=== PATIENT | male | born 1975 | race Caucasian/White ===

== ENCOUNTER 2018-08-07 00:07 | Emergency (ER) | payer SELFPAY ==
[~2018-08-07] VITALS: Ht 170.2 cm; Wt 81.6 kg
[2018-08-07 00:15] VITALS: Ht 170.2 cm; Wt 81.6 kg
[2018-08-07 01:27] LABS: CALCIUM 8.6 mg/dL (8.5-10.1); CARBON DIOXIDE 32.3 mmol/L (21-32); CHLORIDE SERUM 100 mmol/L (98-107); CREATININE SERUM 1.2 mg/dL (0.7-1.3); GFR1 > 60 mL/min; GLUCOSE SERUM 104 mg/dL (74-106); POTASSIUM SERUM 3.9 mmol/L (3.5-5.1); SODIUM SERUM 137 mmol/L (136-145)
[2018-08-07 01:33] LABS: ALBUMIN 3.8 g/dL (3.4-5.0); ALKALINE PHOSPHATASE 57 U/L (46-116); ALT/SGPT 122 U/L (16-63); AST/SGOT 53 U/L (15-37); BILIRUBIN TOTAL 0.35 mg/dL (0.20-1.00); LIPASE 198 IU/L (73-393); TOTAL PROTEIN, SERUM 7.1 g/dL (6.4-8.2)
[2018-08-07 01:35] LABS: BASOPHIL % 0.5 % (0-2); PLATELET COUNT 284 x10^3mcL (130-400); RED CELL DISTRIBUTION WIDTH 13.5 % (11.5-14.5)
[2018-08-07 03:20] VITALS: BP 120/79
== END 2018-08-07 03:20 | disposition home or self-care (01) ==
LOC: ED 00:07
PROVIDERS: Emergency Medicine
DX: R10.13 Epigastric pain (principal); R11.2 Nausea with vomiting, unspecified; G89.29 Other chronic pain; M54.9 Dorsalgia, unspecified; Z90.89 Acquired absence of other organs
CPT/HCPCS: J1885; J2270; J2405; J7030

== ENCOUNTER 2018-11-03 08:16 | Emergency (ER) | payer MEDICAID ==
[~2018-11-03] VITALS: Ht 165.1 cm; Wt 88.6 kg
[2018-11-03 08:20] VITALS: Ht 165.1 cm; Wt 88.6 kg
[2018-11-03 09:17] LABS: BASOPHIL % 0.4 % (0-2); PLATELET COUNT 387 x10^3mcL (130-400)
[2018-11-03 09:34] LABS: CALCIUM 8.9 mg/dL (8.5-10.1); CARBON DIOXIDE 30.8 mmol/L (21-32); CHLORIDE SERUM 102 mmol/L (98-107); CREATININE SERUM 1.1 mg/dL (0.7-1.3); GFR1 > 60 mL/min; GLUCOSE SERUM 112 mg/dL (74-106); POTASSIUM SERUM 4.5 mmol/L (3.5-5.1); SODIUM SERUM 140 mmol/L (136-145)
[2018-11-03 09:38] VITALS: BP 121/81
[2018-11-03 09:40] LABS: ALBUMIN 3.5 g/dL (3.4-5.0); ALKALINE PHOSPHATASE 66 U/L (46-116); ALT/SGPT 20 U/L (16-63); AMYLASE 59 U/L (25-115); AST/SGOT 13 U/L (15-37); BILIRUBIN TOTAL 0.2 mg/dL (0.20-1.00); LIPASE 185 IU/L (73-393); TOTAL PROTEIN, SERUM 7.9 g/dL (6.4-8.2)
== END 2018-11-03 10:26 | disposition home or self-care (01) ==
LOC: ED 08:16
PROVIDERS: Emergency Medicine
DX: K80.50 Calculus of bile duct without cholangitis or cholecystitis without obstruction (principal); I10 Essential (primary) hypertension; F20.9 Schizophrenia, unspecified; F41.9 Anxiety disorder, unspecified; Z90.89 Acquired absence of other organs
CPT/HCPCS: 36415; J1885; Q0092

== ENCOUNTER 2018-11-10 01:08 | Inpatient (IN) | payer MEDICAID ==
[~2018-11-10] VITALS: Ht 162.6 cm; Wt 88.5 kg
[2018-11-10 01:14] VITALS: Ht 162.6 cm; Wt 88.5 kg
--- NOTE | 2018-11-10 01:35 | NUR ---
PT. C/O OF RUQ ABD PAIN OFF AND ON FOR A FEW WKS THAT HAS WORSENED SINCE LAST NIGHT. ALSO REPROTS N/V. 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 PT. AAOX4, TALKING AND RESPONDING APPROPRIATLEY, BREATHING E/U. DR. HALL AT BEDSIDE FOR MSE.
[2018-11-10 01:53] LABS: BASOPHIL % 0.5 % (0-2); RED CELL DISTRIBUTION WIDTH 12.2 % (11.5-14.5)
[2018-11-10 01:54] LABS: PLATELET COUNT 415 x10^3mcL (130-400)
[2018-11-10 02:06] LABS: CALCIUM 8.6 mg/dL (8.5-10.1); CHLORIDE SERUM 103 mmol/L (98-107); CREATININE SERUM 1.1 mg/dL (0.7-1.3); GFR1 > 60 mL/min; GLUCOSE SERUM 134 mg/dL (74-106); POTASSIUM SERUM 3.7 mmol/L (3.5-5.1); SODIUM SERUM 142 mmol/L (136-145)
--- NOTE | 2018-11-10 02:12 | NUR ---
PT. REPORTS PAIN IS NOW 7/10 AFTER MORPHINE. WILL CONTINUE TO MONITOR.
[2018-11-10 02:14] LABS: ALBUMIN 3.5 g/dL (3.4-5.0); ALKALINE PHOSPHATASE 131 U/L (46-116); ALT/SGPT 99 U/L (16-63); AST/SGOT 148 U/L (15-37); BILIRUBIN TOTAL 0.5 mg/dL (0.20-1.00); LIPASE 172 IU/L (73-393); TOTAL PROTEIN, SERUM 7.6 g/dL (6.4-8.2)
[2018-11-10] MEDS ORDERED: ALPRAZOLAM2 MG PO (03:19)
[2018-11-10] MEDS ORDERED: GOOD NEIGHBOR P20 M2 (03:19)
[2018-11-10] MEDS ORDERED: NEURONTIN100 MG PO (03:19)
[2018-11-10 03:31] LABS: microscopic required? NO
[2018-11-10 03:32] LABS: CHOLESTEROL/HDL RATIO 5.4
[2018-11-10 03:39] LABS: UA SPECIFIC GRAVITY 1.015 (1.005-1.035); urine erythrocyte NEGATIVE (NEGATIVE)
--- NOTE | 2018-11-10 03:44 | NUR ---
REPORT CALLED TO SADA RODRIGUEZ
--- NOTE | 2018-11-10 03:47 | NUR ---
PT TRANSFERED TO [facility] [place] AT THIS TIME IN NAD. BREATHING EVEN AND UNLABORED. PT A&OX4, SPEAKING FULL CLEAR SENTENCES. PT TRANSFERED VIA [facility] ACCOMPANIED BY SAMANTHA TILLMAN.
[2018-11-10 03:52] VITALS: BP 137/83
[2018-11-10 04:05] LABS: FREE T4 1.33 ng/dL (0.76-1.46); FREE THYROXINE INDEX 4.3 ug/dL (1.4-4.5); T4(THYROXINE) 12.4 ug/dL (4.7-13.3)
[2018-11-10 04:28] LABS: AMPHETAMINE QUAL UR NONE DETECTED (See below)
--- NOTE | 2018-11-10 04:40 | NUR ---
Admitted this 43y/o male from ED dx of cholelithiasis. Alert and oriented. Ambulatory. No respiratory distress noted on room air. Denies n/v. Medicated as ordered for c/o abd'l. pain level 7/10. MOrphine 2mg IV given. Admission assessment done. NPO except meds. Call light within reach.
[2018-11-10 05:58] LABS: BASOPHIL % 0.3 % (0-2); PLATELET COUNT 365 x10^3mcL (130-400); RED CELL DISTRIBUTION WIDTH 13.1 % (11.5-14.5)
[2018-11-10 06:13] LABS: CALCIUM 8.5 mg/dL (8.5-10.1); CARBON DIOXIDE 32.7 mmol/L (21-32); CHLORIDE SERUM 105 mmol/L (98-107); CREATININE SERUM 1.1 mg/dL (0.7-1.3); GFR1 > 60 mL/min; GLUCOSE SERUM 105 mg/dL (74-106); MAGNESIUM 1.8 mg/dL (1.8-2.4); PHOSPHOROUS 3.2 mg/dL (2.5-4.9); POTASSIUM SERUM 3.9 mmol/L (3.5-5.1); SODIUM SERUM 144 mmol/L (136-145)
--- NOTE | 2018-11-10 07:30 | NUR ---
RECEIVED PT. IN BED A/A/O X4. NO SOB, NO N/V NOTED. PT. C/O ABD. PAIN. NS RUNNING AT 100 CC/HR VIA IV SITE AT R AC. SCD TO BLE MAINTAINED. BED IN LOW POS., CALL LIGHT WITHIN REACH. SIDE RAILS UP X3.
--- NOTE | 2018-11-10 08:40 | NUR ---
VIOLET WIPE GIVEN TO PREPARE FOR SURGERY.
[2018-11-10 09:02] VITALS: BP 133/90
--- NOTE | 2018-11-10 10:05 | NUR ---
PT. IS BEING TAKEN TO O.R. FOR SURGERY AT THIS TIME.
[2018-11-10 13:15] LABS: T3 TOTAL 0.69 ng/mL
--- NOTE | 2018-11-10 13:38 | NUR ---
RECEIVED PT. BACK FROM RECOVERY DEPT. (S/P ZENAIDA. JORDYN. TODAY). PT. A/A/O X3. NO SOB, NO N/V NOTED. ABD. INCISIONS COVERED WITH BANDAGES X5 CDI. B/P= 121/79, P= 77, R.R.= 16, T= 97.5, O2 SAT.= 95% (WITH O2 AT 2L NC). WILL CONTINUE TO MONITOR.
--- NOTE | 2018-11-10 16:51 | NUR ---
REMAINS IN STABLE CONDITION AT THIS TIME. WILL CONTINUE TO MONITOR.
[2018-11-10 16:59] VITALS: BP 133/90
[2018-11-10 18:05] VITALS: BP 111/68
--- NOTE | 2018-11-10 19:26 | NUR ---
RECEIVED PT FROM DAY SHIFT RN. PT RESTING IN BED. NO SIGNS OF CHEST PAIN OR SHORTNESS OF BREATH AT THIS TIME. PT HAS A RAC IV THAT IS CLEAN DRY AND INTACT AT THIS TIME. PT IS CURRENTLY ON ROOM AIR. NO USE OF ACCESSORY MUSCLES OR LABORED BREATHING N0TED. SAFETY MEASURES ARE IN PLACE CALL LIGHT IS WITHIN REACH. WILL CONTINUE TO MONITOR.
--- NOTE | 2018-11-10 19:26 | NUR ---
RECEIVED PT FROM DAY SHIFT RN. PT IS RESTING IN BED AA&O X4 AND ABLE TO FOLLOW COMMANDS. PT DENIES CHEST PAIN OR SHORTNESS OF BREATH. PT IS ON 2L NASAL CANULA. RAC IV IS CLEAN DRY AND INTACT. SAFETY MEASURES ARE IN PLACE. CALL LIGHT IS WITHIN REACH. PT DENIES PAIN AT THIS TIME. WILL CONTINUE TO MONITOR.
--- NOTE | 2018-11-10 21:12 | NUR ---
SPO2: 90% RA. PLACED PT ON 2L NC. SPO2:95%. NURSE NOTIFIED. WILL CONT.TO MONITOR
--- NOTE | 2018-11-10 22:07 | NUR ---
NORCO GIVEN FOR PAIN 8/10 IN ABDOMEN.
[2018-11-10 22:34] VITALS: BP 112/66
[2018-11-11 05:35] VITALS: BP 114/74
[2018-11-11 06:49] LABS: CALCIUM 8.1 mg/dL (8.5-10.1); CARBON DIOXIDE 29.6 mmol/L (21-32); CHLORIDE SERUM 102 mmol/L (98-107); CREATININE SERUM 1.1 mg/dL (0.7-1.3); GFR1 > 60 mL/min; GLUCOSE SERUM 103 mg/dL (74-106); MAGNESIUM 1.5 mg/dL (1.8-2.4); PHOSPHOROUS 3.5 mg/dL (2.5-4.9); POTASSIUM SERUM 3.6 mmol/L (3.5-5.1); SODIUM SERUM 138 mmol/L (136-145)
[2018-11-11 07:12] LABS: BASOPHIL % 0.2 % (0-2); PLATELET COUNT 344 x10^3mcL (130-400); RED CELL DISTRIBUTION WIDTH 13.4 % (11.5-14.5)
--- NOTE | 2018-11-11 07:25 | NUR ---
RECEIVED PT. IN BED A/A/O X3. NO SOB, NO N/V NOTED. PT. DENIES ANY PAIN AT THIS TIME. NS RUNNING AT 80 CC/HR VIA IV SITE AT R AC. SCD TO BLE MAINTAINED. PT. STATED HAS BURPED BUT HAS NOT PASSED GAS YET. BED IN LOW POS., CALL LIGHT WITHIN REACH. SIDE RAILS UP X3.
[2018-11-11 10:08] VITALS: BP 115/72
[2018-11-11 18:16] VITALS: BP 115/74
--- NOTE | 2018-11-11 19:00 | NUR ---
PT. REMAINS IN STABLE CONDITION AT THIS TIME. PT. TOLERATED REG. DIET WELL. NO N/V NOTED.
--- NOTE | 2018-11-11 19:20 | NUR ---
RECEIVED PT FROM DAY SHIFT RN. PT IS AA&O X4 AND ABLE TO FOLLOW COMMANDS. PT DENIES CHEST PAIN OR SOB AT THIS TIME. RAC IV IS CLEAN DRY AND INTACT. SAFETY MEASURES ARE IN PLACE. CALL LIGHT IS WITHIN REACH. WILL CONTINUE TO MONITOR.
--- NOTE | 2018-11-11 20:36 | NUR ---
MORPHINE GIVEN FOR PAIN 10 IN THE ABDOMEN. WILL REASSSESS.
[2018-11-11 20:59] VITALS: BP 129/88
--- NOTE | 2018-11-12 00:31 | NUR ---
PT RESTING IN BED WITH EYES CLOSED. NO SIGNS OF DISTRESS OR FACIAL GRIMMACING.
--- NOTE | 2018-11-12 02:18 | NUR ---
TYLENOL GIVEN FOR HEADACHE. WILL REASSESS.
--- NOTE | 2018-11-12 05:29 | NUR ---
PT SLEPT IN INTERVALS THROUGHOUT THE NIGHT. PT RESTING IN BED. NO SYMPTOMS OF CHEST PAIN OR SHORTNESS OF BREATH UPON ASSESSMENT. IV IS CLEAN DRY AND INTACT. SAFETY MEASURES ARE IN PLACE. CALL LIGHT IS WITHIN REACH. WILL ENDORSE TO DAY SHIFT RN.
[2018-11-12 06:08] VITALS: BP 109/74
[2018-11-12 06:55] LABS: BASOPHIL % 0.4 % (0-2); PLATELET COUNT 349 x10^3mcL (130-400); RED CELL DISTRIBUTION WIDTH 13.7 % (11.5-14.5)
[2018-11-12 07:05] LABS: CALCIUM 8.4 mg/dL (8.5-10.1); CARBON DIOXIDE 30.4 mmol/L (21-32); CHLORIDE SERUM 101 mmol/L (98-107); GFR1 > 60 mL/min; GLUCOSE SERUM 110 mg/dL (74-106); POTASSIUM SERUM 3.6 mmol/L (3.5-5.1); SODIUM SERUM 138 mmol/L (136-145)
--- NOTE | 2018-11-12 07:40 | NUR ---
RECEIVED PT FROM MANAGER SHELL RN. Esperanza/TAMIE. MED SURG. RESPIRATIONS EQUAL AND UNLABORED ON 2L NC. DENIES SOB. ASKED PT IF WE CAN REMOVED NC PT STATES "I WOULD RATHER KEEP IT ON". IV TO RAC PATENT AND INFUSING. NO REDNESS OR SWELLING NOTED. DRESSING TO ABDOMEN X4 CDI. NO DRAINAGE NOTED. PT DENIES ANY PAIN AT THIS TIME. WILL CONTINUE TO MONITOR. CALL LIGHT IN REACH. BED IN LOWEST POSITION.
[2018-11-12 09:04] VITALS: BP 114/71
--- NOTE | 2018-11-12 10:24 | NUR ---
PT SITTING UP IN BED. RESPIRATIONS EQUAL AND UNLABORED ON 2L NC. NO ACUTE RESP DISTRESS NOTED. GIVEN PO MEDS. TOLERATED WELL. IV PATENT AND INFUSING. NO REDNESS OR SWELLING NOTED. PT C/O PAIN 02/20 TO OPERATIVE SITE. GIVEN MORPHINE IVP. TOLERATED WELL. WILL CONTINUE TO MONITOR. CALL LIGHT IN REACH. BED IN LOWEST POSITION.
[2018-11-12] MEDS ORDERED: IBUPROFEN400 MG PO (11:01)
[2018-11-12] MEDS ORDERED: AMOXICILLIN/CLA1 TA6 PO (11:08)
[2018-11-12 11:35] VITALS: BP 114/71
--- NOTE | 2018-11-12 14:32 | NUR ---
PT IN BED SLEEPING. RESPIRATIONS EQUAL AND UNLABORED ON RA. NO ACUTE RESP DISTRESS NOTED. PT TOLD DISCHARGE IS READY. PT STATES HIS FAMILY WILL BE HERE WITHIN 30 TO 40 MINUTES TO PICK HIM UP. PT WOULD LIKE TO GO OVER DISCHARGE INSTRUCTIONS WHEN FAMILY ARRIVES. GIVEN PO MEDS. TOLERATED WELL. EMPTIED 720 ML OF DARK YELLOW URINE FROM URINAL. WILL CONTINUE TO MONITOR. CALL LIGHT IN REACH. BED IN LOWEST POSITION.
[2018-11-12 16:37] VITALS: BP 113/77
--- NOTE | 2018-11-12 17:12 | NUR ---
PT GIVEN DISCHARGE INSTRUCTIONS. PT DRESSING CHANGED TO ABDOMEN X5. DRESSING HAD MINIMAL SANGINEOUS DRAINAGE ON EACH. PHOTOGRAPH TAKEN. PT INSTRUCTED TO CONTACT DR. MEJIA TO MAKE FOLLOW UP APPOINTMENT ON 11/16. PT INFORMED OF FOLLOW UP APPOINTMENT ON 12/03 AT [facility] AT 0930. PT VERBALIZED UNDERSTANDING. PT PROVIDED PRESCRIPTIONS FOR AMOXICILLIN AND IBUPROFEN FOR PAIN. PT ENCOURAGED TO COME TO ER IF ANY WORSENING SYMPTOMS SUCH SWELLING, DRAINAGE OR TEMPERATURE OCCUR. PT VERBALIZED UNDERSTANDING. ALL QUESTIONS AND CONCERNS ADDRESSED. IV TO RAC REMOVED CATHETER INTACT. NO REDNESS OR SWELLING NOTED. PT GETTING DRESSED. WILL CALL WHEN READY TO BE TAKEN DOWN.
== END 2018-11-12 17:53 | disposition home or self-care (01) | DRG 263 ==
LOC: ED 01:08 → MU 02:58
PROVIDERS: Emergency Medicine; Internal Medicine; Surgery; ADMIT General Practice
PROC: 0FT44ZZ Resection of Gallbladder, Percutaneous Endoscopic Approach (ICD-10-PCS; principal; 2018-11-10 10:00)
DX: K80.00 Calculus of gallbladder with acute cholecystitis without obstruction (principal); F20.9 Schizophrenia, unspecified; F31.9 Bipolar disorder, unspecified; K21.9 Gastro-esophageal reflux disease without esophagitis; R03.0 Elevated blood-pressure reading, without diagnosis of hypertension; F41.9 Anxiety disorder, unspecified; G47.00 Insomnia, unspecified; G40.909 Epilepsy, unspecified, not intractable, without status epilepticus; J61 Pneumoconiosis due to asbestos and other mineral fibers; R74.0 Nonspecific elevation of levels of transaminase and lactic acid dehydrogenase [LDH]; E78.5 Hyperlipidemia, unspecified; Z68.34 Body mass index [BMI] 34.0-34.9, adult
CPT/HCPCS: 84439; J0330; J0690; J1170; J2250; J2270; J2405; J2543; J2704; J2710; J3010; J3475; J3490; J7030; J7120; J7620

== ENCOUNTER 2019-01-21 19:48 | Emergency (ER) | payer MEDICAID ==
[~2019-01-21] VITALS: Ht 165.1 cm; Wt 88.5 kg
[~2019-01-21 19:48] MED LIST: ALPRAZOLAM2 MG PO; AMOXICILLIN/CLA1 TA6 PO; GOOD NEIGHBOR P20 M2; IBUPROFEN400 MG PO; NEURONTIN100 MG PO
[2019-01-21 19:56] VITALS: Ht 165.1 cm; Wt 88.5 kg
[2019-01-21 20:43] LABS: BASOPHIL % 0.3 % (0-2); PLATELET COUNT 261 x10^3mcL (130-400); RED CELL DISTRIBUTION WIDTH 13.3 % (11.5-14.5)
[2019-01-21 20:52] LABS: CALCIUM 9.7 mg/dL (8.5-10.1); CARBON DIOXIDE 27.3 mmol/L (21-32); CREATININE SERUM 1.4 mg/dL (0.7-1.3); POTASSIUM SERUM 4.2 mmol/L (3.5-5.1)
[2019-01-21 20:56] LABS: ALBUMIN 3.9 g/dL (3.4-5.0); BILIRUBIN TOTAL 0.36 mg/dL (0.20-1.00); TOTAL PROTEIN, SERUM 8.2 g/dL (6.4-8.2)
[2019-01-22 00:43] VITALS: BP 110/71
== END 2019-01-22 00:43 | disposition home or self-care (01) ==
LOC: ED 19:48
PROVIDERS: Emergency Medicine
DX: N13.2 Hydronephrosis with renal and ureteral calculous obstruction (principal); J45.909 Unspecified asthma, uncomplicated; I10 Essential (primary) hypertension; F31.9 Bipolar disorder, unspecified; Z90.89 Acquired absence of other organs; Z90.49 Acquired absence of other specified parts of digestive tract
CPT/HCPCS: J1885; J2270; J2405; J7030

== ENCOUNTER 2019-03-02 01:49 | Inpatient (IN) | payer MEDICAID ==
[~2019-03-02] VITALS: Ht 165.1 cm; Wt 90.0 kg
[2019-03-02 01:58] VITALS: Ht 165.1 cm; Wt 90.0 kg
--- NOTE | 2019-03-02 02:08 | NUR ---
DR MCKEON AT BEDSIDE PERFORMING MSE.
--- NOTE | 2019-03-02 02:14 | NUR ---
PT BIBA TO BED 5 VIA GURNEY. PER MEDIC PT FAMILY CALLED 911 AFTER PT VOICED SI AND HI. PT REPORTED TO FAMILY HE WANTED TO CALL POLICE AND TELL THEM KILLED PEOPLE "SO THEY CAN TAKE HIM OUT". PER MEDIC FAMILY STATED PT READS "[employer] SO HE CAN OUT SMART THE POLICE". PER MEDIC FAMILY STATED THEY TALKED PT OUT OF CALLING THE POLICE BUT PT BEGAN CUTTING HIMSELF WITH A KNIFE, AND STATED "I WANTED TO CUT MY WHOLE OPEN". ON ASSESSMENT PT IS AAOX4, RESPIRATIONS EVEN AND UNLABORED, PT SPEAKING IN SHORT SENTENCES SLURRED, SPEECH. PT IS CALM AND COPPERATIVE. PT REPORTS HE HASNT SLEPT IN 30 DAYS. PT STATES "I WANT TO END IT ALL AND STOP MY BRAIN FROM RUNNING ITS ON FIRE" WHEN ASKED OF HI PT STATES "I WANT TO END EVERYONE". PT REPORTS PAST SI ATTEMPTS. PT HAS MULTIPLE SUPERFICIAL LACERATIONS TO L FOREARM. PER MEDIC PT WAS SEEN IN EARLY FEBRUARY FOR SIMILAR SYMPTOMS BUT NOT PLACED ON A HOLD AND DISCHARGED IN A FEW HOURS. PT IS LAYING IN BED WITH EYE CLOSED, EASILY AROUSABLE AND ABLE TO ANSWER QUESTIONS. PT CHANGED INTO GOWN, BELONGINGS PLACED IN NURSING STATION. PT WITHIN VIEW OF NURSING STATION, SUICIDE PRECAUTIONS IN PLACE.
[2019-03-02 02:24] LABS: BASOPHIL % 0.3 % (0-2); PLATELET COUNT 263 x10^3mcL (130-400); RED CELL DISTRIBUTION WIDTH 14.1 % (11.5-14.5)
[2019-03-02 02:45] LABS: microscopic required? NO
[2019-03-02 02:58] LABS: CALCIUM 8.9 mg/dL (8.5-10.1); CARBON DIOXIDE 25.8 mmol/L (21-32); CHLORIDE SERUM 104 mmol/L (98-107); CREATININE SERUM 1.2 mg/dL (0.7-1.3); GFR1 > 60 mL/min; GLUCOSE SERUM 102 mg/dL (74-106); POTASSIUM SERUM 3.9 mmol/L (3.5-5.1); SODIUM SERUM 139 mmol/L (136-145)
[2019-03-02 03:02] LABS: ALBUMIN 3.7 g/dL (3.4-5.0); ALKALINE PHOSPHATASE 43 U/L (46-116); ALT/SGPT 17 U/L (16-63); AST/SGOT 5 U/L (15-37); TOTAL PROTEIN, SERUM 7.4 g/dL (6.4-8.2)
[2019-03-02 03:11] LABS: UA SPECIFIC GRAVITY <=1.005 (1.005-1.035)
[2019-03-02 03:12] LABS: urine erythrocyte NEGATIVE (NEGATIVE)
[2019-03-02 03:24] LABS: AMPHETAMINE QUAL UR NONE DETECTED (See below)
--- NOTE | 2019-03-02 03:53 | NUR ---
PT TAKEN TO USE THE BATHROOM, CHAPERONED BY JENNIFER MCKAY. PT HAS STEADY GAIT TO AND FROM BATHROOM.
--- NOTE | 2019-03-02 04:37 | NUR ---
PT SLEEPING IN BED, VISIBLE RISE AND FALL OF CHEST, RESPIRATIONS EVEN AND UNLABORED.
--- NOTE | 2019-03-02 06:19 | NUR ---
PT AAOX4, CALM AND COOPERATIVE TALKING IN FULL CLEAR SENTENCES. PT STATES HE WAS HUNGRY, AND PROVIDED WITH SANDWHICH AND JUICE.
--- NOTE | 2019-03-02 06:48 | NUR ---
PT ASKED ABOUT PLAN OF CARE. PT EDUCATED ON PROCESS OF 5150 HOLD. PT THEN STATED "WHAT HAPPENS TO ME LEGALLY? CAN I STILL BUY A GUN". WHEN ASKED WHY PT WANTED TO BUY A GUN, PT STATED "BECAUSE I LIKE TO DO A LOT OF HUNTING". PT STATES HE DOES NOT CURRENTLY OWN A GUN AND DENIES WANTING TO HARM HIMSELF AT THIS TIME.
--- NOTE | 2019-03-02 07:03 | NUR ---
PT FIRST found on his rt side on er # 05 hob @ 45 degrees srup,asleep,o2 sat monmitors on.awaits reevaluations.dago.
--- NOTE | 2019-03-02 07:10 | NUR ---
per miki blackburn,pt used urinal shortly after arrival with @ 300 ml urie output.urine specimen was sent.
--- NOTE | 2019-03-02 07:11 | NUR ---
pt awakened for breakfast,is calm quiet cooperative nad.and eating breakfast with good appetite.awaits reevaluations.
--- NOTE | 2019-03-02 07:25 | NUR ---
PT CALLED ME AND SAID HE WANTS HANDS RESTRAINTS PUT ON HIM BECAUSE HE DOES NOT FEEL safe.er md made aware.er md states he is ordering meds instead.pt made aware.awaits reevaluations.
--- NOTE | 2019-03-02 07:40 | NUR ---
again pt requested to put him on hand restraints because meds is not going to work fast enough,er md made aware again.er md vo to go ahead and put pt on hand restraints.steam plant control room operatorfinancial services internship keena rn made aware too.
--- NOTE | 2019-03-02 07:48 | NUR ---
pt tested hand restraints and states tighten it so he could not touch his face,done.news wire photo operatorclinical nursing intern keena rn made aware.
--- NOTE | 2019-03-02 07:53 | NUR ---
pt also requested to restraint feet/ankles,done.[employer] carrierterrazzo journeyman keena rn aware.pt tolerated procedures with no incidents.pt states he might get up and destroy the room.
--- NOTE | 2019-03-02 08:07 | NUR ---
pt stated after the ert bill finished the restraints he is getting up to blow up the room.pt switched to all 4 restraints to hard type.er md and manager of financialrn cardiology keena rn made aware.awaits reevaluations.
--- NOTE | 2019-03-02 08:25 | NUR ---
just finished using urinal with @ 50 ml output urine,assisted by bill ert/emt.pt tolerated procedures with no incidents.awaits reevaluations.
--- NOTE | 2019-03-02 10:15 | NUR ---
AT ABOUT 1015 AM,pt called and requested to loosen a retraint.i loosened rt arm,left leg.pt calm quiet cooperative nad.awaits reevaluations.
--- NOTE | 2019-03-02 10:30 | NUR ---
at about 1030 pt released himself from rt hand and rt ankle area restraints.er md/synthetic filament extruderkiln burner helper keena rn aware.pt tolerated procedures with no incidents.awaits reevaluations.
--- NOTE | 2019-03-02 11:01 | NUR ---
RESTING ASLEEP ON HIS RT SIDE ER # 05 HOB @ 45 DEGREES SR UP,NAD.AWAITS REEVALUations.
--- NOTE | 2019-03-02 12:48 | NUR ---
PT Currently eating lunch with good appetite.dago charles.monitors on.awaits reevaluations.
--- NOTE | 2019-03-02 13:52 | NUR ---
resting asleep on his left side er # 05 hob @ 30 degrees sr up,monitors on.nad.awaits reevaluations.
--- NOTE | 2019-03-02 15:23 | NUR ---
RESTING ASLEEP SUPINE,NAD.MONITORS ON.AWAITS REEVALUATIONS.
--- NOTE | 2019-03-02 17:31 | NUR ---
CURRENTLY EATING DINNER WITH good appetite.dago charles.awaits reevaluations.
--- NOTE | 2019-03-02 18:24 | NUR ---
RESTING ASLEEP ON HIS RT side er # 05 hob @ 45 degreess r up,nad.monitors on.awaits reevaluations.
--- NOTE | 2019-03-02 19:12 | NUR ---
PT ENDORSED TO/ACCEPTED BY SUBHASH RODRIGUEZ.AWAITS TRANSPORT SERVICES,REEVALUATIONS.
[2019-03-02 20:13] VITALS: BP 103/65
--- NOTE | 2019-03-02 20:27 | NUR ---
RECEIVED PT FROM ER. PT ADMIT FOR SUICIDAL IDEATION, 5150 HOLD. PT IS A/O X4, VERBAL RESPONSIVE, ABLE TO TELL WHAT HE NEEDS. PT STATE HE HAD SUICIDAL IDEA FOR 30 DAYS. PLAN TO CALL THE COLLECTIONS MANAGER TO KILL HIM. AND HE ALSO ATTEMPED TO USE KNIFT CUT HIS ARM. PT STATE HE OFTEN SEE DEMONS AND HEARING VOICE BUT NOT AT THIS MOMENT. PT STATE HE JUST WANT HIS BRAIN TO STOP. HE DIDN'T SLEEP FOR 30 DAYS. PT APPEAR CALM AND COOPERATED AT THIS MOMENT. LUNG SOUND CLEAR BILATERAL, NO COUGH,NO SOB, DENY ANY CHEST PAIN OR DISCOMFORT, BOWEL SOUND PRESENT ALL 4 QUADRANTS, NO DISTENTION, NO TENDER. PEDAL PULSE PRESENT BOTH FEET,NO EDEMA, NO IV ACCESS. ROOM AT CLOSE TO NURSE STATION. SITTER AT BEDSIDE. CLOSE MONITOR THE. ALL INFORMATION ENDORSE TO PRIMARY NURSE. MICK. JENNIFER. ALL ADLS ASSIST. ALL NEED MET, CALL LIGHT IN REACH, WILL CONTINUE TO MONITOR.
--- NOTE | 2019-03-02 22:41 | NUR ---
PT AWAKE VERBAL ASKING FOR STRONG MEDS THAT CAN TURN OFF HIS BRAIN ACTIVITY, XANAX 2MG PO JUST GIVEN SCHED, BUT PT INSIST THAT IT WILL NOT TURN OFF HIS BRAIN ACTIVITY, COZ IF IT STILL GOING HE DON'T KNOW WHAT WILL HAPPEN, PAGED DR ACEVEDO, AWAITING FOR CALL BACK, SNACKS PROVIDED TO THE PT PER REQUEST, ON 1:1 SITTER, CONT TO MONITOR.
--- NOTE | 2019-03-02 23:02 | NUR ---
DR ACEVEDO CAME AND TALKED TO THE PT, AWAITING FOR ORDERS.
--- NOTE | 2019-03-02 23:18 | NUR ---
DR ACEVEDO STATED TO MONITOR PT FOR NOW UNTIL XANAX WITH TAKE EFFECT IF NOT HE WILL PRESCRIBE ANOTHER MEDICATION FOR THE PT.
--- NOTE | 2019-03-02 23:33 | NUR ---
PT GOT UP TO THE BATHROOM BRUSHING HIS TEETH THEN WENT BACK TO BED, NO BEHAV ISSUES AT THIS TIME, COOPERATIVE AND CALM, WITH OCC MENTIONING ABOUT VISUAL AND AUDITORY HALLUCINATIONS, CONT TO MONITOR.
--- NOTE | 2019-03-03 01:56 | NUR ---
PT STILL AWAKE ASKING FOR MORE MEDS THAT MAKES HIM SLEEP, STATED THAT HE'S TAKING ZOLPIDEM 10 MG 2TABS, COMBINATION WITH XANAX AND NYQUIL, ALSO PT ASKING FOR HIM TO BE STRAP COZ HE CAN'T CONTROL HIMSELF, DR ACEVEDO MADE AWARE AND TALK TO THE PT, CLARIFIED WITH DR ACEVEDO CURRENT ORDER OF ALPRAZOLAM 3MG TO BE GIVEN NOW, JUST GAVE 2MG OF ALPRAZOLAM EARLIER @ 22O0, AWAITING FOR ORDER.
--- NOTE | 2019-03-03 02:22 | NUR ---
DR ACEVEDO CHANGE THE ORDER TO IV ATIVAN 2MG, MEDS GIVEN INDICATED, IV ACCESS ESTABLISHED @ RFA G#20 WITH GOOD BLD RETURNED, PT ASKING TO BE RESTRAINT BOTH HANDS AND LEGS, HE INSISTED INSPITE OF THE EXPLAINATION GIVEN DR ACEVEDO IN THE ROOM AND ORDERED BILAT SOFT WRIST RESTRAINT, PT WANTED TO RESTRAINT BOTH LEGS WELL, EXPLAINED TO JUST THE HANDS FOR NOW UNTIL MEDICATION JUST GIVEN WILL TAKE EFFECT, PT AGREED WITH IT, V/S TAKEN AND RECORDED, CONT TO MONITOR.
[2019-03-03 02:27] VITALS: BP 116/79
--- NOTE | 2019-03-03 03:09 | NUR ---
PT STILL AWAKE KEEP KICKING AND RESTLESS WANTED TO BE TIED UP BOTH LEGS, HALDOL 5MG IM GIVEN PER PRN ORDER FOR RESTLESS BEHAV, SITTER REMAINED AT BEDSIDE, REALITY ORIENTATION PROVIDED, CONT TO MONITOR.
[2019-03-03 05:51] VITALS: BP 97/64
--- NOTE | 2019-03-03 06:00 | NUR ---
PT SLEEPING AT THIS TIME, WITH BILAT SOFT WRIST RESTRAINT PER PT REQUEST, NO DISTRESS DENIES PAIN, ATIVAN AND HALDOL GIVEN EARLIER HELPED PT TO SLEEP, AMBULATES ADLIB TO THE BATHROOM WITH ASSIST, VOIDING FREELY, WILL ENDORSE TO INCOMING SHIFT FOR F/U CARE.
[2019-03-03 06:57] LABS: CALCIUM 8.9 mg/dL (8.5-10.1); CARBON DIOXIDE 24.4 mmol/L (21-32); CHLORIDE SERUM 107 mmol/L (98-107); GFR1 > 60 mL/min; GLUCOSE SERUM 110 mg/dL (74-106); POTASSIUM SERUM 3.8 mmol/L (3.5-5.1); SODIUM SERUM 143 mmol/L (136-145)
[2019-03-03 07:13] LABS: BASOPHIL % 0.4 % (0-2); PLATELET COUNT 274 x10^3mcL (130-400); RED CELL DISTRIBUTION WIDTH 14.5 % (11.5-14.5)
--- NOTE | 2019-03-03 07:25 | NUR ---
PATIENT LAYING ON RIGHT SIDE, SLEEPING WITH EYE MASKS. SOFT WRIST RESTRAINTS LOOSE AND NOT IN PLACE. NO SIGN OF ACUTE DISTRESS AT THIS TIME. BREATHING EVEN AND UNLABORED. PER SITTER AT BEDSIDE, PATIENT HAS HAD RESTRAINTS OFF SINCE HE WENT TO THE RESTROOM THIS AM AND DID NOT ASK TO PUT BACK ON, AND PATIENT DID NOT SHOW ANY BEHAVIORAL SIGNS OF CONCERN. WILL CONT TO MONITOR. CALL LIGHT WITHIN REACH.
[2019-03-03 07:45] VITALS: BP 122/74
--- NOTE | 2019-03-03 08:15 | NUR ---
PATIENT SLEEPING AND ARROUSABLE W/ NO SIGN OF ACUTE DISTRESS. PER SITTER AT BEDSIDE, WAS IN FOR PSYCH CONSULT BETWEEN 7:30-8AM. PATIENT DENIES ANY SUICIDAL IDEATION OR PLANS TO HARM SELF AT THIS TIME. WILL CONT TO MONITOR.
--- NOTE | 2019-03-03 09:35 | NUR ---
PATIENT IN BED SLEEPING BUT EASILY ARROUSABLE, SITTER AT BEDSIDE. CALM AND COOPERATIVE, SHORT RESPONSES. AM DUE MEDICATIONS GIVEN. HEALING MULTIPLE LACERATIONS NOTED TO LFA, IV SITE WNL. NO SIGN OF ACUTE DISTRESS AT THIS TIME. WILL CONT TO MONITOR.
--- NOTE | 2019-03-03 13:45 | NUR ---
PATIENT SLEEPING BUT EASILY ARROUSABLE, DUE MEDICATIONS GIVEN. REMINDED PATIENT HE HAS LUNCH READY ON HIS BEDSIDE TRAY. PATIENT SAT UP TO EAT. MINIMAL VERBAL RESPONSES. SITTER AT BEDSIDE.
[2019-03-03 17:00] VITALS: BP 99/55
--- NOTE | 2019-03-03 19:30 | NUR ---
PT IS DROWSY BUT AROUSABLE WITH TACTILE. PT MUMBLES ANSWERS. MED SURG. NO SIGN OF DISTRESS NOTED. PULSES ARE PRESENT. NO EDEMA NOTED. LUNGS CLEAR IN ALL FEILDS. ON RA, DENIES ANY SOB. EQAUL CHEST RISE AND FALL. NO SIGN OF RESP DISTRESS. BOWEL SOUNDS PRESENT x4. THIN LACERATIONS NOTED ON LFA, CLOSED WOUND, JET WIPER WITH NO DRAIANGE. SALINE LOCKED ON RFA INTACT AND CLEAN. SITTER AT BEDSIDE FOR PT SAFETY. BED IS AT LOWEST SETTING. CALL LIGHT WITHIN REACH. ROOM MADE SAFE OF ANY HAZARD. WILL CONTINUE TO MONTIOR.
[2019-03-03 19:50] VITALS: BP 96/59
--- NOTE | 2019-03-04 00:28 | NUR ---
PT RESTING IN BED WITH BOTH EYES CLOSED. BREATHING EVEN AND UNLABORED WITH A LIGHT SNORE. NO SIGN OF DISTRESS NOTED. SITTER AT BEDSIDE. BED IS AT LOWEST SETTING. CALL LIGHT WITHIN REACH. WILL CONTINUE TO MONTIOR.
[2019-03-04 05:40] VITALS: BP 100/53
--- NOTE | 2019-03-04 05:57 | NUR ---
PT IS RESTING IN BED WITH BOTH EYES CLOSED. BREATHING EVEN AND UNLABORED. NO SIGN OF DISTRESS NOTED. NO ACUTE EVENT OCCURED AT NIGHT. SITTER AT BEDSIDE ALL NIGHT. BED IS AT LOWEST SETTING. CALL LIGHT WITHIN REACH. WILL ENDORSE TO AM NURSE.
--- NOTE | 2019-03-04 06:08 | NUR ---
NO vacancy at this time , isra endorsed tto AM a shift to contnue to look for placement.
--- NOTE | 2019-03-04 07:13 | NUR ---
RECEIVED PT FROM NOC JENNIFER FERNANDES. PT AA/OX4. COMPLAINT OF ELIAS, ACHING, ACUTE, RATES 01/21. GIVEN TYLENOL SEE MAR. CALM/COOPERATIVE AT THIS TIME. NO N/V. NO SOB ON ROOM AIR. NO CHEST PAIN. IV WNL TO RFA, PATENT. SALINE LOCKED. SITTER AT BEDSIDE. 5150 HOLD. BED IN LOW POSITION. CALL LIGHT WITHIN REACH. INSTRUCTED TO USE CALL LIGHT TO CALL FOR ASSISTANCE PRN. VERBALIZED UNDERSTANDING. WILL CONTINUE TO MONITOR.
[2019-03-04 07:24] LABS: BASOPHIL % 0.4 % (0-2); PLATELET COUNT 294 x10^3mcL (130-400); RED CELL DISTRIBUTION WIDTH 14.1 % (11.5-14.5)
[2019-03-04 07:31] LABS: CALCIUM 9.4 mg/dL (8.5-10.1); CARBON DIOXIDE 27.5 mmol/L (21-32); CHLORIDE SERUM 104 mmol/L (98-107); GFR1 > 60 mL/min; GLUCOSE SERUM 96 mg/dL (74-106); MAGNESIUM 2.1 mg/dL (1.8-2.4); PHOSPHOROUS 4.8 mg/dL (2.5-4.9); POTASSIUM SERUM 3.8 mmol/L (3.5-5.1); SODIUM SERUM 141 mmol/L (136-145)
--- NOTE | 2019-03-04 08:15 | NUR ---
PT COMPLAINT OF ANXIETY. GIVEN MEDICATION, SEE MAR. NO S/S OF ACUTE DISTRESS. FOLLOWS COMPLEX COMMANDS. SITTER AT BEDSIDE. WILL CONTINUE TO MONITOR.
--- NOTE | 2019-03-04 10:50 | NUR ---
PT RESTING IN BED WITH BOTH EYES CLOSED. EASILY AROUSABLE TO VERBAL STIMULI. NO S/S OF ACUTE DISTRESS. NO SOB ON ROOM AIR. NO COMPLAINT OF PAIN AT THIS TIME. NO CHEST PAIN. NO N/V. NPO FOR EXAMS. PT CALM/COOPERATIVE. FALL PRECAUTIONS IN PLACE. IV WNL, SALINE LOCKED. BED IN LOW POSITION. CALL LIGHT WITHIN REACH. FAMILY MEMBER AT BEDSIDE. WILL CONTINUE TO MONITOR.
--- NOTE | 2019-03-04 10:56 | NUR ---
PT RESTING IN BED WITH BOTH EYES CLOSED. EASILY AROUSABLE TO VERBAL STIMULI. NO S/S OF ACUTE DISTRESS. CALM/COOPERATIVE AT THIS TIME. IV WNL, SALINE LOCKED. NO SOB ON ROOM AIR. RR EVEN/UNLABORED. BED IN LOW POSITION. CALL LIGHT WITHIN REACH. SITTER AT BEDSIDE. SEIZURE PREC IN PLACE. WILL CONTINUE TO MONITOR.
--- NOTE | 2019-03-04 14:25 | NUR ---
Discount pharmacy card and list to low cost medical clinics given to patient by Mac Espino.
[2019-03-04 17:36] VITALS: BP 94/58
--- NOTE | 2019-03-04 18:19 | NUR ---
PT LAYING IN BED RESTING WITH BOTH EYES CLOSED. NO S/S OF ACUTE DISTRESS. EASILY AROUSABLE TO VERBAL STIMULI. NO SOB ON ROOM AIR. RR EVEN/UNLABORED. NO CHEST PAIN. CALM/COOPERATIVE. SITTER AT BEDSIDE. BED IN LOW POSITION. CALL LIGHT WITHIN REACH. WILL ENDORSE TO ONCOMING SHIFT.
--- NOTE | 2019-03-04 19:57 | NUR ---
RECIEVED PT IN BED PT'S 5150 SITTER AT THE BEDSIDE FOR SAFETY , PT DENY SUICIDAL IDEATION AT THE MOMENT ,LUNG SOUNDS CTA , ABD SOFT BS ACTIVE X4 , HL TO RAC INTACT FLUSHING WELL . CALL LIGHT WITHIN PT'S REACH WILL CON'T TO MONITOR PT CLOSELY .
--- NOTE | 2019-03-04 20:14 | NUR ---
DR WELLS DC 5150. WILL CON'T TO MONITOR PT CLOSELY .
[2019-03-04 20:43] VITALS: BP 107/62
--- NOTE | 2019-03-04 23:50 | NUR ---
PT C/O ANXIETY AND H/A MEDICATED WITH ATIVAN AND NORCO ORDERED PRN ALSO PT STATED"I'M HEARING VOICES TELLING ME TO HURT AND CHOKE MYSELF SOME VOICES I CAN'T UNDERSTAND PLEASE KEEP EYE ON ME IN'M SCARED " CHARGE NURSE AWRE . WILL KEEP EYE ON PT FOR THE MOMENT .
--- NOTE | 2019-03-05 03:11 | NUR ---
PT'S IN BED WITH EYES CLOSED , RESP EVEN . CALL LIGHT WITHIN PT'S REACH.
--- NOTE | 2019-03-05 03:34 | NUR ---
I HAVE REVIEWED THE DATA COLLECTION BY MONSTER (NAME):ROBERTO ALARCON ENTERED ON (DATE/TIME):03/04 I CONCUR WITH THE DATA AND ANY EXCEPTIONS OR COMMENTS ARE LISTED BELOW:
--- NOTE | 2019-03-05 05:28 | NUR ---
PT'S IN BED EYES CLOSED SNOORING RESP EVEN .
[2019-03-05 05:39] VITALS: BP 109/63
--- NOTE | 2019-03-05 06:20 | NUR ---
PT'S IN BED AWAKE DENY SUICIDAL IDEATION AT THE MOMENT , NO LONGER HEARING VOICES , HL INTACT FLUSHING WELL . WILL CON'T TO MONITOR PT CLOSELY.
--- NOTE | 2019-03-05 07:15 | NUR ---
RECEIVED PT FROM MACK RN. PT USING RESTROOM. GAIT STEADY. AA/OX4. NO COMPLAINT OF PAIN. DENIES AUDITORY/VISUAL HALLUCINATIONS, DENIES HEARING VOICES AT THIS TIME. DENIES SUICIDAL/HOMICIDAL IDEATION. PT CALM/COOPERATIVE. REPORTS FEELING RESTLESS AT TIMES. NO SOB ON ROOM AIR. NO COMPLAINT OF CHEST PAIN. IV WNL TO RAC, PATENT AND FLUSHES WELL. SALINE LOCKED. MULTIPLE SUPERFICIAL LACERATIONS NOTED TO LFA, ROYA. NO DRAINAGE. SEE CHART FOR ADMISSION PICTURES. BED IN LOW POSITION. CALL LIGHT WITHIN REACH. INSTRUCTED TO USE CALL LIGHT TO CALL FOR ASSISTANCE PRN. VERBALIZED UNDERSTANDING. PT LAYING IN BED. WILL CONTINUE TO MONITOR.
[2019-03-05 07:40] LABS: BASOPHIL % 0.5 % (0-2); PLATELET COUNT 299 x10^3mcL (130-400); RED CELL DISTRIBUTION WIDTH 14.4 % (11.5-14.5)
[2019-03-05 07:41] LABS: CALCIUM 9.6 mg/dL (8.5-10.1); CARBON DIOXIDE 31.1 mmol/L (21-32); CHLORIDE SERUM 104 mmol/L (98-107); CREATININE SERUM 0.9 mg/dL (0.7-1.3); GFR1 > 60 mL/min; GLUCOSE SERUM 101 mg/dL (74-106); MAGNESIUM 1.9 mg/dL (1.8-2.4); POTASSIUM SERUM 3.9 mmol/L (3.5-5.1); SODIUM SERUM 143 mmol/L (136-145)
[2019-03-05 08:45] VITALS: BP 130/89
--- NOTE | 2019-03-05 10:12 | NUR ---
PT RESTING IN BED WITH BOTH EYES CLOSED. NO S/S OF ACUTE DISTRESS. NO COMPLAINT OF PAIN. CALM/COOPERATIVE. BED IN LOW POSITION. CALL LIGHT WITHIN REACH. WILL CONTINUE TO MONITOR.
[2019-03-05 13:09] VITALS: BP 130/89
--- NOTE | 2019-03-05 13:50 | NUR ---
PT BEING DISCHARGED TO HOME. AWAKE, ALERT, ORIENTED X4. NO S/S OF ACUTE DISTRESS. NO COMPLAINT OF PAIN. NO SOB ON ROOM AIR. DENIES SUICIDAL/HOMICIDAL IDEATION. DENIES RECOLLECTION OF EVENT THAT BROUGHT PT TO HOSPITAL. DENIES HEARING VOICES. PT CALM/COOPERATIVE. NO CHEST PAIN. CALM/COOPERATIVE. DISCHARGE EDUCATION PROVIDED TO PT. INSTRUCTED TO FOLLOW UP WITH PCP. IV WNL TO RAC, IV REMOVED, CATHETER IN TACT. PRESSURE APPLIED. SITE WNL. BELONGINGS WITH PATIENT. SUPERFICIAL LACERATIONS TO LFA COLLECTIONS REPRESENTATIVE. NO DRAINAGE. SEE CHART FOR DISCHARGE PICTURES. PT WAITING FOR RIDE.
--- NOTE | 2019-03-05 14:09 | NUR ---
TAKEN TO LOBBY BY KELLEN COLLINS. AMBULATORY WITH FULL ROM. GAIT STEADY. BELONGINGS WITH PATIENT. NO S/S OF ACUTE DISTRESS.
== END 2019-03-05 14:11 | disposition home or self-care (01) | DRG 750 ==
LOC: ED 01:49 → DU 18:20 → MU 18:20
PROVIDERS: Emergency Medicine; ADMIT Internal Medicine
DX: F25.0 Schizoaffective disorder, bipolar type (principal); R45.851 Suicidal ideations; G40.909 Epilepsy, unspecified, not intractable, without status epilepticus; S50.812A Abrasion of left forearm, initial encounter; F41.9 Anxiety disorder, unspecified; I10 Essential (primary) hypertension; F43.10 Post-traumatic stress disorder, unspecified; G47.00 Insomnia, unspecified; Z91.14 Patient's other noncompliance with medication regimen; Z68.33 Body mass index [BMI] 33.0-33.9, adult; X78.8XXA Intentional self-harm by other sharp object, initial encounter; Y92.89 Other specified places as the place of occurrence of the external cause
CPT/HCPCS: G0378; G0480; J1630; J2060; J3486; Q0163

== ENCOUNTER 2019-03-25 19:25 | Emergency (ER) | payer MEDICAID ==
[~2019-03-25] VITALS: Ht 165.1 cm; Wt 87.5 kg
[2019-03-25 19:39] VITALS: Ht 165.1 cm; Wt 87.5 kg
[2019-03-26 00:30] VITALS: BP 133/97
== END 2019-03-26 00:30 | disposition home or self-care (01) ==
LOC: ED 19:25
DX: F41.9 Anxiety disorder, unspecified (principal); J45.909 Unspecified asthma, uncomplicated; F31.9 Bipolar disorder, unspecified; Z76.0 Encounter for issue of repeat prescription; Z90.89 Acquired absence of other organs; Z90.49 Acquired absence of other specified parts of digestive tract

== ENCOUNTER 2019-09-23 14:52 | Emergency (ER) | payer MEDICAID ==
[~2019-09-23] VITALS: Ht 165.1 cm; Wt 86.6 kg
[2019-09-23 15:00] VITALS: BP 118/91; Ht 165.1 cm; Wt 86.6 kg
== END 2019-09-23 18:20 | disposition home or self-care (01) ==
LOC: ED 14:52
DX: J32.9 Chronic sinusitis, unspecified (principal); J45.909 Unspecified asthma, uncomplicated; R11.2 Nausea with vomiting, unspecified
CPT/HCPCS: J1885